=== PATIENT | female | born 1980 | race Caucasian/White ===

== ENCOUNTER 2017-02-27 07:19 | Emergency (ER) | payer OTHER ==
[~2017-02-27] VITALS: Ht 172.7 cm; Wt 165.1 kg
[2017-02-27 08:26] VITALS: BP 139/94
== END 2017-02-27 08:26 | disposition home or self-care (01) ==
LOC: ED 07:19
DX: S86.912A Strain of unspecified muscle(s) and tendon(s) at lower leg level, left leg, initial encounter (principal); J45.909 Unspecified asthma, uncomplicated; I10 Essential (primary) hypertension; Z79.899 Other long term (current) drug therapy; Z88.8 Allergy status to other drugs, medicaments and biological substances; Z91.010 Allergy to peanuts; Z91.018 Allergy to other foods; X50.1XXA Overexertion from prolonged static or awkward postures, initial encounter; Y93.89 Activity, other specified; Y99.8 Other external cause status; Y92.89 Other specified places as the place of occurrence of the external cause

== ENCOUNTER 2017-11-13 00:48 | Emergency (ER) | payer OTHER ==
[~2017-11-13] VITALS: Ht 172.7 cm; Wt 161.5 kg
[2017-11-13 00:58] VITALS: Ht 172.7 cm; Wt 161.5 kg
[2017-11-13 04:27] VITALS: BP 133/80
== END 2017-11-13 05:22 | disposition home or self-care (01) ==
LOC: ED 00:48
DX: J45.901 Unspecified asthma with (acute) exacerbation (principal); J06.9 Acute upper respiratory infection, unspecified; I10 Essential (primary) hypertension; E78.00 Pure hypercholesterolemia, unspecified; Z91.010 Allergy to peanuts; Z88.8 Allergy status to other drugs, medicaments and biological substances
CPT/HCPCS: J7512; J7613

== ENCOUNTER 2018-07-09 20:44 | Emergency (ER) | payer OTHER ==
[~2018-07-09] VITALS: Ht 172.7 cm; Wt 162.4 kg
[2018-07-09 20:54] VITALS: Ht 172.7 cm; Wt 162.4 kg
[2018-07-10 00:04] VITALS: BP 140/88
== END 2018-07-10 00:04 | disposition home or self-care (01) ==
LOC: ED 20:44
DX: M25.562 Pain in left knee (principal); J45.909 Unspecified asthma, uncomplicated; I10 Essential (primary) hypertension; K21.9 Gastro-esophageal reflux disease without esophagitis; F41.9 Anxiety disorder, unspecified; F32.9 Major depressive disorder, single episode, unspecified; E78.00 Pure hypercholesterolemia, unspecified; Z98.890 Other specified postprocedural states; Z91.010 Allergy to peanuts; Z88.8 Allergy status to other drugs, medicaments and biological substances; X50.1XXA Overexertion from prolonged static or awkward postures, initial encounter; Y93.89 Activity, other specified; Y92.89 Other specified places as the place of occurrence of the external cause; Y99.8 Other external cause status

== ENCOUNTER 2019-03-12 18:50 | Emergency (ER) | payer OTHER ==
[~2019-03-12] VITALS: Ht 172.7 cm; Wt 158.8 kg
[2019-03-12 21:00] VITALS: BP 139/86
== END 2019-03-12 21:00 | disposition home or self-care (01) ==
LOC: ED 18:50
DX: M25.562 Pain in left knee (principal); J45.909 Unspecified asthma, uncomplicated; I10 Essential (primary) hypertension; E78.00 Pure hypercholesterolemia, unspecified; K21.9 Gastro-esophageal reflux disease without esophagitis; F41.9 Anxiety disorder, unspecified; F32.9 Major depressive disorder, single episode, unspecified; Z91.010 Allergy to peanuts; Z88.8 Allergy status to other drugs, medicaments and biological substances; Z91.018 Allergy to other foods
CPT/HCPCS: J1885; Q0092

== ENCOUNTER 2019-04-18 14:29 | Inpatient (IN) | payer OTHER ==
[~2019-04-18] VITALS: Ht 172.7 cm; Wt 155.4 kg
--- NOTE | 2019-04-18 14:30 | NUR ---
EKG IN PROGRESS IN TRIAGE.
[2019-04-18 14:31] VITALS: Ht 172.7 cm; Wt 155.4 kg
--- NOTE | 2019-04-18 15:00 | NUR ---
RECEIVED PATIENT FROM TRIAGE, PATIENT TAKEN TO ROOM 7 VIA WHEELCHAIR. PATIENT C/O MID CHEST PAIN X 2 DAYS AND DIZZINESS TODAY. PATIENT IS AAO X 4 (NAME, DATE, TIME AND CONDITION). EYES - LUIS. MUCUS - PINK. SR ON MONITOR, HR = 72. LUNGS - CTA. BS PRESENT X 4 QUADRANTS. B/L UPPER AND LOWER EXT PULSES PALPABLE. WILL CONTINUE TO MONITOR.//NOV RN
--- NOTE | 2019-04-18 16:06 | NUR ---
DR GAINES AT BEDSIDE FOR EVAL AT THIS TIME, APR RN AT BEDSIDE W[employer]DL[employer] RESEARCH ECOLOGIST.//APR RN
[2019-04-18 16:43] LABS: BASOPHIL % 1.1 % (0-2); PLATELET COUNT 351 x10^3mcL (130-400)
[2019-04-18 16:44] LABS: RED CELL DISTRIBUTION WIDTH 15.4 % (11.5-14.5)
[2019-04-18 17:31] LABS: CALCIUM 8.5 mg/dL (8.5-10.1); CARBON DIOXIDE 26.3 mmol/L (21-32); CREATININE SERUM 1.1 mg/dL (0.6-1.0); POTASSIUM SERUM 4.6 mmol/L (3.5-5.1)
[2019-04-18 17:35] LABS: BILIRUBIN TOTAL 0.25 mg/dL (0.20-1.00)
[2019-04-18 17:36] LABS: ALBUMIN 3.2 g/dL (3.4-5.0)
[2019-04-18 19:16] LABS: MAGNESIUM 2.1 mg/dL (1.8-2.4); PHOSPHOROUS 3.8 mg/dL (2.5-4.9)
[2019-04-18] MEDS ORDERED: RANEXA1000 M2 PO (19:22)
[2019-04-18] MEDS ORDERED: CLONIDINE0.2 M1 PO (19:23)
[2019-04-18] MEDS ORDERED: DILTIAZEM HCL240 MG PO (19:23)
[2019-04-18 19:24] LABS: T3 TOTAL 1.16 ng/mL
[2019-04-18] MEDS ORDERED: SINGULAIR4 M1 PO (19:24)
[2019-04-18] MEDS ORDERED: TOPAMAX25 MG PO (19:24)
[2019-04-18 19:25] LABS: FREE T4 0.97 ng/dL (0.76-1.46); FREE THYROXINE INDEX 2.1 ug/dL (1.4-4.5); T4(THYROXINE) 7.3 ug/dL (4.7-13.3)
[2019-04-18] MEDS ORDERED: ZOL100 PO (19:25)
[2019-04-18] MEDS ORDERED: PROTONIX40 MG/Pac1 PO (19:26)
[2019-04-18 19:27] LABS: microscopic required? NO
--- NOTE | 2019-04-18 19:32 | NUR ---
REPORT GIVEN TO MILA OZUNA FOR ROOM 220B.//APR RN
[2019-04-18 19:33] LABS: urine erythrocyte NEGATIVE (NEGATIVE)
[2019-04-18 19:43] LABS: AMPHETAMINE QUAL UR NONE DETECTED (See below)
[2019-04-18 20:06] VITALS: BP 128/77
--- NOTE | 2019-04-18 20:10 | NUR ---
PT WAS RECEIVED BY PRIMARY NURSE OZUNA FROM ED AT [facility]IA [facility], CAME IN DUE TO CHEST PRESSURE X2-3 DAYS. AAOX4. C/O MILD HEADACHE AND DIZZINESS. ABLE TO FOLLOW SIMPLE COMMANDS. SPEECH IS CLEAR. NO SOB NOTED, LUNG SOUNDS CTA, O2 SAT=98% ON 2LPM/NC. C/O CHEST PRESSURE, NSR ON THE MONITOR. DENIES ABDOMINAL DISCOMFORT. BOWEL SOUNDS ACTIVE. IV SITE PN THE LEFT INDEX FINGER PATENT AND INTACT. SIDE RAILS UPX2. CALL LIGHT ON REACH FOR CONTINUITY OF CARE. ENDORSED TO PRIMARY NURSE OZUNA FOR CONTINUITY OF CARE
--- NOTE | 2019-04-18 21:55 | NUR ---
PT C/O KENNEDY 8/10 AND NAUSEA. MEDICATED TORADOL 15MG IV AND ZOFRAN 4MG IV ORDERED.WILL CONTINUE TO MONITOR.
--- NOTE | 2019-04-19 00:30 | NUR ---
INSERTED NEW IV ACCESS TO LEFT UPPER ARM. KEPT OLD IV SITE FOR BACK UP. IV SITE PATENT AND INTACT.WILL CONTINUE TO MONITOR.
--- NOTE | 2019-04-19 05:15 | NUR ---
PT APPEARS TO BE SLEEPING. NO DISTRESS NOTED. NO C/O PAIN OR PRESSURE AT THIS TIME. BED IN LOWEST POSITION,CALL LIGHT WITHIN REACH. WILL CONTINUE TO MONITOR.
[2019-04-19 05:51] VITALS: BP 100/62
--- NOTE | 2019-04-19 06:17 | NUR ---
PT C/O KENNEDY 8/10 AND DISCOMFORT ON HER LEFT LOWER CHEST. MEDICATED TORADOL 15MG IV ORDERED. WILL CONTINUE TO MONITOR.
[2019-04-19 06:36] LABS: BASOPHIL % 1.2 % (0-2); PLATELET COUNT 329 x10^3mcL (130-400)
[2019-04-19 06:51] LABS: RED CELL DISTRIBUTION WIDTH 15.7 % (11.5-14.5)
[2019-04-19 06:52] LABS: CALCIUM 8.5 mg/dL (8.5-10.1); CARBON DIOXIDE 25.2 mmol/L (21-32); CREATININE SERUM 1.2 mg/dL (0.6-1.0); POTASSIUM SERUM 4.3 mmol/L (3.5-5.1)
--- NOTE | 2019-04-19 07:30 | NUR ---
PT ENDORSE TO ME THIS MORNING, LAYING IN BED AA/O X4, BREATHING EVEN AND UNLABORED ON RA, NO ACUTE RESP DISTRESS OR SOB NOTED. TELE 9 SR NOTED HR 83, DENIES ANY CP OR PRESSURE. TRACE OF EDEMA NOTED BUE, BOWEL SOUNDS ACTIVE IN ALL FOUR QUADS, VOIDS FREELY. AMB. IV TO THE L INDEX FINGER AND NIKOLAI INTACT AND PATENT/ HEPLOCKED. CALL LIGHT IN REACH. X2 SIDE RAILS UP/ WILL CONTINUE TO MONITOR.
--- NOTE | 2019-04-19 07:32 | NUR ---
CARE ENDORSED TO DAY NURSE EDER.
--- NOTE | 2019-04-19 08:34 | NUR ---
ECHOCARDIOGRAM PENDING-NURSE WITH PATIENT
--- NOTE | 2019-04-19 08:58 | NUR ---
ECHO PENDING-LAB WITH PATIENT
[2019-04-19 09:01] VITALS: BP 123/80
[2019-04-19 11:55] VITALS: BP 106/71
--- NOTE | 2019-04-19 13:43 | NUR ---
PT C/O KENNEDY, MEDICATED PER EMAR WILL CONTINUE TO MONITOR
--- NOTE | 2019-04-19 15:34 | NUR ---
PT C/O KENNEDY/ MEDICATED PER EMAR. TOLERATED 100% LUNCH. WILL CONTINUE TO MONITOR.
[2019-04-19 16:26] VITALS: BP 109/71
--- NOTE | 2019-04-19 18:44 | NUR ---
NO ACUTE CHANGES AT THIS TIME. NO ACUTE RESP DISTRESS OR SOB NOTED. PT WILL BE NPO TOMORROW 4 HRS PRIOR TO STRESS TEST SCHEDULED FOR 0930 AM/ PT AWARE. IV TO THE RHAND INTACT AND PATENT/ NO REDNESS OR SWELLING NOTED. WILL ENDORSE TO INCOMING RN.
--- NOTE | 2019-04-19 19:10 | NUR ---
PT RECEIVE A/O X4, ABLE TO MAKE NEEDS KNOWN, FAMILY AT BEDSIDE. TELE #9, PT ADMITTED FOR CP, TROP (-)X3, PENDING STRESS TEST IN THE AM. PULSES PALPABLE, TRACE EDEMA TO BLE. BREATHING IS EVEN AND UNLABORED ON RA, NO RESP DISTRESS NOTED. ABD SOFT AND ROUND, DENIES N/V. VOIDS FREELY, BRP. AMBULATORY WITH STEADY GAIT. SKIN IS WARM AND DRY, INTACT. PT REPORTS 6/10 CHEST PRESSURE AND 8/10 HEADACHE. PT STATES, CHEST PRESSURE IS TOLERABLE, BUT REQUESTING PAIN MEDS FOR H/A. IV TO NIKOLAI, PATENT AND INTACT, SITE WNL. NO ACUTE DISTRESS NOTED. BED IN LOWEST SETTING, SIDE RAILS UP X2, CALL LIGHT WITHIN REACH. WILL CONT TO MONITOR.
[2019-04-19 20:05] VITALS: BP 97/54
--- NOTE | 2019-04-19 22:12 | NUR ---
PT C/O 03/26 HEADACHE. PRN NORCO GIVEN ORDERED. NO ACUTE DISTRESS NOTED. WILL CONT TO MONITOR.
--- NOTE | 2019-04-19 23:34 | NUR ---
PT C/O INSOMNIA. DR FUENTES MADE AWARE. ONE TIME ORDER OF AMBIEN PO GIVEN ORDERED. NO ACUTE DISTRESS NOTED. WILL CONT TO MONITOR.
[2019-04-20 05:34] VITALS: BP 106/64
--- NOTE | 2019-04-20 06:13 | NUR ---
PT SLEPT WELL THROUGHOUT THE EVENING. BREATHING IS EVEN AND UNLABORED, NO RESP DISTRESS OBSERVED. PT NPO FOR STRESS TEST, PT VERBALIZES UNDERSTANDING OF BEING NPO, NPO SIGN POSTED. NO ACUTE CHANGES ENCOUNTERED DURING SHIFT. ALL NEEDS MET AND ANTICIPATED. IV TO NIKOLAI, PATENT AND INTACT, SITE WNL. CALL LIGHT WITHIN REACH. WILL ENDORSE CARE TO AM NURSE.
[2019-04-20 06:41] LABS: BASOPHIL % 0.8 % (0-2); PLATELET COUNT 317 x10^3mcL (130-400)
[2019-04-20 06:57] LABS: CALCIUM 8.4 mg/dL (8.5-10.1); CARBON DIOXIDE 24.8 mmol/L (21-32); CREATININE SERUM 1.2 mg/dL (0.6-1.0); MAGNESIUM 2.1 mg/dL (1.8-2.4); PHOSPHOROUS 4.1 mg/dL (2.5-4.9); POTASSIUM SERUM 4.4 mmol/L (3.5-5.1)
[2019-04-20 06:59] LABS: RED CELL DISTRIBUTION WIDTH 15.5 % (11.5-14.5)
--- NOTE | 2019-04-20 07:33 | NUR ---
PT IN NO ACUTE DISTRESSED. CONTINUITY OF CARE ENDORSED TO RAMIRO ZARAGOZA. ALL QUESTIONS AND CONCERNS ADDRESSED.
--- NOTE | 2019-04-20 07:35 | NUR ---
RECEIVED PT IN BED. ASSESSED AND DOCUMENTED. STATED HEADACHE, OFFERED TYLENOL PO BUT PT REFUSED. RELAXATION TECH PROVIDED. SAFTEY PRECAUTIONS ARE IN PLACE. WILL MONITOR.
--- NOTE | 2019-04-20 08:35 | NUR ---
PT IS SLEEPING THIS TIME.
--- NOTE | 2019-04-20 09:00 | NUR ---
NUCLEAR STAFF TOOK PT TO RADIOLOGY FOR STRESS TEST. PT IS STABLE. DENIES HEADACHE THIS TIME.
[2019-04-20] MEDS ORDERED: LIPI10 PO (09:30)
--- NOTE | 2019-04-20 11:30 | NUR ---
RECEIVED PT BACK FROM NUCLEAR MEDICINE AFTER STRESS TEST. PT IS STABLE. V/S STABLE.
[2019-04-20 13:00] VITALS: BP 137/86
--- NOTE | 2019-04-20 17:00 | NUR ---
NUCLEAR MED SAID THEY ARE DONE WITH HER TEST, NO MORE FURTHER TEST. CALLED AND INFORMED HIM ABOUT STRESS TEST RESULT. HE SAID HE CLEARED HIM FOR DISCHARGE. INFORMED SANGEETA ABOUT THAT AND SHE SAID SHE WILL DC PT.
[2019-04-20 17:17] VITALS: BP 114/70
[2019-04-20 17:43] VITALS: BP 114/70
--- NOTE | 2019-04-20 19:00 | NUR ---
DISCHARGE INSTRUCTIONS AND PRESCRIPTIONS GIVEN. PB SIGNED AND SENT WITH PT. IV AND TELE REMOVED. DENIES ANY PAIN. SIGNAL APPRENTICE WHEELED PT DOWN TO LOBBY ACCOMPANIED WITH PT'S FAMILY. PT DC HOME.
== END 2019-04-20 19:20 | disposition home or self-care (01) | DRG 243 ==
LOC: ED 14:29 → DU 18:21
PROVIDERS: Emergency Medicine; Internal Medicine; ADMIT Internal Medicine
DX: K21.9 Gastro-esophageal reflux disease without esophagitis (principal); E44.1 Mild protein-calorie malnutrition; E66.01 Morbid (severe) obesity due to excess calories; F41.9 Anxiety disorder, unspecified; I10 Essential (primary) hypertension; J45.909 Unspecified asthma, uncomplicated; M16.11 Unilateral primary osteoarthritis, right hip; M17.11 Unilateral primary osteoarthritis, right knee; E78.5 Hyperlipidemia, unspecified; G43.809 Other migraine, not intractable, without status migrainosus; F43.10 Post-traumatic stress disorder, unspecified; G47.30 Sleep apnea, unspecified; Z68.43 Body mass index [BMI] 50.0-59.9, adult; Z88.8 Allergy status to other drugs, medicaments and biological substances; Z91.018 Allergy to other foods; Z79.899 Other long term (current) drug therapy; Z80.3 Family history of malignant neoplasm of breast; Z82.3 Family history of stroke; Z81.8 Family history of other mental and behavioral disorders
CPT/HCPCS: 83880; 84439; A9500; G0378; J1885; J2405; J2785